=== PATIENT | male | born 2000 | race Hispanic/Latino ===

== ENCOUNTER 2024-05-26 17:22 | Emergency (ER) | payer SELFPAY ==
[~2024-05-26] VITALS: Ht 170.2 cm; Wt 65.0 kg
[2024-05-26 20:31] VITALS: BP 140/82
[2024-05-26] MEDS ORDERED: DOXYCYCLINE HYCLATE 100 MG/CAP PO ONE (20:50)
[2024-05-26] MEDS ORDERED: AZITHROMYCIN 250 MG/TAB PO ONE (20:50)
[2024-05-26 20:54] LABS: URINE BILIRUBIN - DIPSTICK Negative (NEGATIVE); URINE BLOOD DIPSTICK Negative (NEGATIVE); URINE COLOR Yellow; URINE GLUCOSE - DIPSTICK Negative (NEGATIVE); URINE KETONE Negative (NEGATIVE); URINE LEUK ESTERASE Negative (NEGATIVE); URINE NITRITE - DIPSTICK Negative (Negative); URINE PH 5.5 (4.5-8.0); URINE PROTEIN - DIPSTICK Negative (NEG-TRACE); URINE SPECIFIC GRAVITY 1.025; URINE UROBILINOGEN - DIPSTICK 0.2 E.U./dL (0.2)
[2024-05-26] MEDS ORDERED: DOXYCYCLINE100 MG PO (21:17)
== END 2024-05-26 22:22 | disposition home or self-care (01) | DRG 730 ==
LOC: ED 17:22
PROVIDERS: Family Medicine
DX: N48.5 Ulcer of penis (principal); A63.0 Anogenital (venereal) warts